=== PATIENT | female | born 1975 | race Caucasian/White ===

== ENCOUNTER 2020-09-22 11:40 | Outpatient (CLI) | payer OTHER, SELFPAY ==
[2020-09-22 11:54] LABS: Basophils Absolute Auto 0.03 K/mm3 (0.00-0.10); Basophils Percent Auto 0.5 % (0.0-1.0); Eosinophils Absolute Auto 0.08 K/mm3 (0.02-0.50); Eosinophils Percent Auto 1.2 % (1.0-6.0); Hematocrit 37.2 % (35.0-49.0); Hemoglobin 12.2 g/dL (12.0-15.0); Immature Granulocyte Absolute 0.02 K/mm3 (0.00-0.00); Immature Granulocyte Percent A 0.3 % (0.0-0.0); Lymphocytes Percent Auto 27.4 % (18.0-42.0); Mean Corpuscular HGB Conc 32.8 g/dL (32.0-36.0); Mean Corpuscular Hemoglobin 27.8 pg (27.0-31.0); Mean Corpuscular Volume 84.7 fL (78.0-102.0); Mean Platelet Volume 10.8 fl (9.2-11.8); Monocytes Absolute Auto 0.68 K/mm3 (0.10-0.90); Monocytes Percent Auto 10.3 % (2.0-11.0); Neutrophils Percent Auto 60.3 % (50.0-70.0); Platelet Count Result 275 K/mm3 (150-420); Red Blood Count 4.39 M/mm3 (4.20-5.40); Red Cell Distribution Width 14.2 % (11.6-14.4); White Blood Count 6.6 K/mm3 (4.8-10.8)
[2020-09-22 12:18] LABS: Hemoglobin A1C 5.9 % (<5.7)
[2020-09-22 12:30] LABS: Alanine Aminotransferase 33 U/L (14-59); Albumin Level 3.9 g/dL (3.4-5.0); Alkaline Phosphatase 142 U/L (46-116); Anion Gap 12 mmol/L (8-16); Aspartate Amino Transferase 14 U/L (15-37); Bilirubin,Total 0.3 mg/dL (0.00-1.00); Blood Urea Nitrogen 10 mg/dL (7-18); Calcium 8.8 mg/dL (8.5-10.1); Carbon Dioxide 31 mmol/L (21-32); Chloride 99 mmol/L (98-108); Cholesterol 137 mg/dL (0-200); Estimated Glomerular Filt Rate > 60; Glucose 109 mg/dL (70-99); HDL Direct 55 mg/dL (40-60); LDL Cholesterol Calculated 53 mg/dL (<130); Osmolality Calculated 294 mOsm/kg (285-295); Sodium 142 mmol/L (136-145); Thyroid Stimulating Hormone 2.54 uIU/mL (0.36-3.74); Total Protein 7.3 g/dL (6.4-8.2); Triglycerides 146 mg/dL (0-150)
[2020-09-22 12:57] LABS: Potassium 2.5 mmol/L (3.5-5.1)
== END 2020-09-22 11:41 | disposition home or self-care (01) ==
LOC: CHSLAB 11:44
PROVIDERS: PCP Nurse Practitioner Family; Visit Provider Nurse Practitioner Family
DX: I10 Essential (primary) hypertension (principal); R63.1 Polydipsia; E03.9 Hypothyroidism, unspecified
CPT/HCPCS: 36415; 80053; 80061; 83036; 84443; 85025

== ENCOUNTER 2020-09-22 14:43 | Emergency (ER) | payer OTHER, SELFPAY ==
[2020-09-22 14:50] VITALS: BP 141/99; PULSE 100; RESP 16; TEMP 37; O2SAT 100
--- NOTE | 2020-09-22 14:54 | ED.RECABL ---
HPI - Recheck/Abnormal Lab/Rx General Chief Complaint: Recheck/Abnormal Lab/Rx Stated Complaint: low potassium Time Seen by Provider: 09/22/20 15:06 Source: patient Mode of arrival: ambulatory Limitations: no limitations History of Present Illness HPI narrative: 44-year-old comes in today at the instruction of her primary care doctor for low potassium. She is our primary care doctor today and had some more less routine labs done in which her potassium was 2.5. Patient denies any symptoms and denies any history of low potassium in the past. She denies weight loss, a desire to lose weight, eating disorders symptoms, and ecjg-mir-hrzyrmo medications. At her visit she was found to be hypertensive and was prescribed hydrochlorothiazide. MD complaint: abnormal lab Initial visit (ago): hour(s) (2-3) Returns today for: called because of abnormal lab/test Symptoms since prior visit: no new symptoms Context: called for abnormal lab result Associated symptoms: none Related Data Home Medications Medication Instructions Recorded Confirmed omeprazole 20 mg capsule,delayed 20 mg PO DAILY 10/21/19 09/22/20 release cetirizine 10 mg PO DAILY 09/22/20 09/22/20 fluoxetine 20 mg PO DAILY 09/22/20 09/22/20 fluticasone propionate 50 mcg INTRANASAL DAILY 09/22/20 09/22/20 levothyroxine 50 mcg PO DAILY 09/22/20 09/22/20 lisinopril 20 mg PO DAILY 09/22/20 09/22/20 Allergies Allergy/AdvReac Type Severity Reaction Status Date / Time No Known Allergies Allergy Mild N/A Verified 09/22/20 10:23 Review of Systems Constitutional: Constitutional: Denies chills, Denies fever(s) and Denies weakness Eyes: Eyes: Denies change in vision and Denies photophobia ENT: Denies nasal congestion and Denies sore throat Cardiovascular: Cardiovascular: Denies chest pain and Denies radiating jaw, neck or arm pain Respiratory: Respiratory: Denies cough Gastrointestinal: Gastrointestinal: Denies abdominal pain, Reports diarrhea, Denies nausea and Denies vomiting Genitourinary: Genitourinary: Denies hematuria, Denies nocturia and Denies dysuria Musculoskeletal: Musculoskeletal: Denies back pain, Denies arthralgias and Denies joint swelling Integumentary/Breasts: Skin/Breast: Denies pruritus, Denies erythema and Denies rash Neurologic: Denies vertigo, Denies dizziness and Denies syncope Hematologic/Lymphatic: Hematologic/Lymphatic: Denies easy bleeding and Denies easy bruising Allergic/Immunologic: Allergic/Immunologic: Denies lip swelling and Denies tongue swelling PMFSH Past Medical History Medical History Acute bronchitis Acute sinusitis Chronic sinus complaints Chronic sinus complaints Depression Exposure to COVID-19 virus HTN (hypertension) Hypothyroidism Polydipsia Tobacco dependence Surgical History Surgical History Hx of appendectomy Hx of cholecystectomy Hx of colonoscopy 05/14/2019 Hx of hysterectomy 2009 Family History Family History Mother Diabetes mellitus Father Carcinoma of colon Social History Social History Smoking packs per day: 0.5 Smoking cigarettes per day: 10.0 Years smoked: 25 Smoking pack-years: 12.50 Smoking status: Current every day smoker Tobacco type: cigarettes Alcohol intake: current Substance use: never Substance use type: does not use Additional occupation/education comments: [employer] Gender identity (if verbalized by the patient): Female Exam Const: General: healthy appearing, no acute distress and alert Orientation/consciousness: patient oriented x3 Limitations: no limitations HENMT: Head: normal to inspection Ears: external ears normal, TM's normal bilaterally and EAC's normal General nose exam: Normal nares present Face
[2020-09-22] MEDS: KCL 20 MEQ/SW 100 ML 100 ML 50 MEQ IVPB ×2 (15:25→17:27)
--- NOTE | 2020-09-22 15:46 | PC.NURSE ---
PT IS TAKEN TO ROOM 203 FOR INFUSION OF POTASSIUM - PT IS AWARE SHE IS GOING TO BE HERE INTO THE NIGHT - PT STABLE AT TIME OF TRANSPORT - [facility] INFUSING TO THE FLOOR - REPORT TO SHAHEEN
[2020-09-22 16:05] LABS: Potassium Urine Random 80.5 mmol/L (12-62); Sodium Urine Random 72 mmol/L (20-110)
--- NOTE | 2020-09-22 16:07 | PC.NURSE ---
pt arrived to floor with belongings, iv running, pt has no complaints at this time, given drink, call light on lap
--- NOTE | 2020-09-22 16:28 | PC.NURSE ---
placed on telemetry, HR 81, SV Rhythm per monitor
[2020-09-22] MEDS: IBUPROFEN 600 MG TABLET PO (17:07)
[2020-09-22] MEDS: SODIUM CHLORIDE 0.9% IV 1,000 ML 100 ML IV CONT (17:07)
--- NOTE | 2020-09-22 18:11 | PC.NURSE ---
pt ate 100% of dinner, reports arm soreness is better now, iv running
--- NOTE | 2020-09-22 19:32 | PC.NURSE ---
Potassium finished, is ordering repeat bnp
[2020-09-22 19:56] LABS: Anion Gap 7 mmol/L (8-16); Blood Urea Nitrogen 12 mg/dL (7-18); Calcium 8.3 mg/dL (8.5-10.1); Carbon Dioxide 32 mmol/L (21-32); Chloride 103 mmol/L (98-108); Estimated Glomerular Filt Rate > 60; Glucose 110 mg/dL (70-99); Osmolality Calculated 294 mOsm/kg (285-295); Potassium 2.9 mmol/L (3.5-5.1); Sodium 142 mmol/L (136-145)
--- NOTE | 2020-09-22 20:30 | PC.NURSE ---
IV removed, cath intact, dressing applied, pt tolerated well
[2020-09-22 20:34] VITALS: BP 141/99; PULSE 81; RESP 20; TEMP 36.3; O2SAT 100
== END 2020-09-22 20:33 | disposition home or self-care (01) ==
PROVIDERS: Emergency Provider Emergency Medicine; PCP Nurse Practitioner Family
DX: E87.6 Hypokalemia (principal); I10 Essential (primary) hypertension
CPT/HCPCS: 36415; 80048; 82570; 84133; 84300; 96365; 96366; 99283; 99284; A9270; J3480; J7030

== ENCOUNTER → 2020-12-05 02:04 | Outpatient (CLI) | payer OTHER, SELFPAY ==
[2020-12-05 19:43] LABS: SARS-CoV-2 RNA PCR Negative
== END ==
PROVIDERS: PCP Nurse Practitioner Family; Visit Provider Internal Medicine Gastroenterology
DX: Z01.812 Encounter for preprocedural laboratory examination (principal); Z20.822 Contact with and (suspected) exposure to COVID-19
CPT/HCPCS: C9803; U0003; U0005

== ENCOUNTER → 2020-12-26 01:20 | Outpatient (CLI) | payer OTHER, SELFPAY ==
[2020-12-26 19:38] LABS: SARS-CoV-2 RNA PCR Negative
== END ==
PROVIDERS: PCP Nurse Practitioner Family; Visit Provider Internal Medicine Gastroenterology
DX: Z01.812 Encounter for preprocedural laboratory examination (principal); Z20.822 Contact with and (suspected) exposure to COVID-19
CPT/HCPCS: C9803; U0003; U0005

== ENCOUNTER 2021-03-17 11:59 | Outpatient (CLI) | payer OTHER, SELFPAY ==
--- NOTE | 2021-03-17 12:03 | ECG_ITS ---
Measurements Intervals [place] Rate: 67 P: 62 IN: 121 QRS: 68 QRSD: 86 T: 59 QT: 447 QTc: 472 Interpretive Statements SINUS RHYTHM MINIMAL Q WAVES- INFERIOR LEADS BORDERLINE ECG Electronically Signed On 03-17-2021 13:02:42 CDT by Sebastián Alvarado D.O.
[2021-03-17 12:11] LABS: Basophils Absolute Auto 0.05 K/mm3 (0.00-0.10); Basophils Percent Auto 0.6 % (0.0-1.0); Eosinophils Absolute Auto 0.18 K/mm3 (0.02-0.50); Hemoglobin 12.6 g/dL (12.0-15.0); Immature Granulocyte Absolute 0.03 K/mm3 (0.00-0.00); Immature Granulocyte Percent A 0.3 % (0.0-0.0); Lymphocytes Absolute Auto 2.21 K/mm3 (1.10-4.50); Lymphocytes Percent Auto 24.4 % (18.0-42.0); Mean Corpuscular HGB Conc 32.3 g/dL (32.0-36.0); Mean Corpuscular Hemoglobin 27.8 pg (27.0-31.0); Mean Corpuscular Volume 85.9 fL (78.0-102.0); Mean Platelet Volume 10.9 fl (9.2-11.8); Monocytes Absolute Auto 0.76 K/mm3 (0.10-0.90); Monocytes Percent Auto 8.4 % (2.0-11.0); Neutrophils Absolute Auto 5.8 K/mm3 (1.7-7.2); Neutrophils Percent Auto 64.3 % (50.0-70.0); Platelet Count Result 274 K/mm3 (150-420); Red Blood Count 4.54 M/mm3 (4.20-5.40); Red Cell Distribution Width 14.9 % (11.6-14.4); White Blood Count 9.1 K/mm3 (4.8-10.8)
[2021-03-17 13:43] LABS: Alanine Aminotransferase 31 U/L (14-59); Albumin Level 3.8 g/dL (3.4-5.0); Alkaline Phosphatase 115 U/L (46-116); Anion Gap 12 mmol/L (8-16); Aspartate Amino Transferase 18 U/L (15-37); Bilirubin,Total 0.3 mg/dL (0.00-1.00); Blood Urea Nitrogen 8 mg/dL (7-18); Calcium 8.6 mg/dL (8.5-10.1); Carbon Dioxide 29 mmol/L (21-32); Chloride 104 mmol/L (98-108); Cholesterol 122 mg/dL (0-200); Estimated Glomerular Filt Rate > 60; Free T4 Free Thyroxine 1.16 ng/dL (0.76-1.46); Glucose 92 mg/dL (70-99); HDL Direct 40 mg/dL (40-60); LDL Cholesterol Calculated 56 mg/dL (<130); Osmolality Calculated 298 mOsm/kg (285-295); Potassium 3.2 mmol/L (3.5-5.1); Sodium 145 mmol/L (136-145); Thyroid Stimulating Hormone 0.76 uIU/mL (0.36-3.74); Total Protein 7.5 g/dL (6.4-8.2); Triglycerides 129 mg/dL (0-150)
== END 2021-03-17 12:00 | disposition home or self-care (01) ==
LOC: CHSLAB 12:03
PROVIDERS: PCP Nurse Practitioner Family; Visit Provider Nurse Practitioner Family
DX: R07.9 Chest pain, unspecified (principal); I10 Essential (primary) hypertension; E03.9 Hypothyroidism, unspecified; Z00.00 Encounter for general adult medical examination without abnormal findings
CPT/HCPCS: 36415; 80053; 80061; 84439; 84443; 85025; 93005

== ENCOUNTER 2021-04-05 15:03 | Outpatient (CLI) | payer OTHER, SELFPAY ==
--- NOTE | ~2021-04-05 | XR_ITS ---
XR lumbar spine 2-3V DATE: 04/05/2021 15:23 INDICATION: Chronic intermittent low back pain radiating to left leg TECHNIQUE: AP, lateral, coned lateral lumbosacral views COMPARISON: 06/12/2014 lumbar spine FINDINGS: Surgical clips, right upper quadrant, consistent with cholecystectomy. There is degenerative spurring of the lower thoracic spine. There is minimal degenerative spurring o f the lumbar spine. No fracture or bone destruction is evident. The included lower thoracic and lumbar pedicles are intac t. The sacroiliac joints are intact. IMPRESSION: Mild degenerative change of the lower thoracic and to a lesser extent lumbar spine Reviewed, dictated and finalized at location A. IMPRESSION: Mild degenerative change of the lower thoracic and to a lesser exte nt lumbar spine
== END 2021-04-05 15:04 | disposition home or self-care (01) ==
LOC: CHSIMG 15:05
PROVIDERS: PCP Nurse Practitioner Family; Visit Provider Nurse Practitioner Family
DX: M54.9 Dorsalgia, unspecified (principal)
CPT/HCPCS: 72100

== ENCOUNTER 2021-04-12 14:11 | Outpatient (RCR) | payer OTHER, SELFPAY ==
--- NOTE | 2021-04-12 15:37 | PTOPEVAL ---
Thank you for referring Amirah Rios to [facility] [place].? The patient is scheduled to be seen for therapy? ____x/week for ___ weeks. Please review, sign, date and return this plan of care RAMOS. I agree with and certify that the following plan of care is medically necessary. Referring Physician Date Admitting Provider: Attending Provider: Maritza Verde NP Referring Provider: GITA Outpatient Evaluation Start: 04/12/21 14:13 Freq: Status: Active Protocol: Document 04/12/21 14:13 ACR (Rec: 04/12/21 15:31 ACR [email or web address]) Therapy Assessment Status Assessment Status Assessment Status Evaluation Outpatient Past Medical History Neurological History Hx Neurological Disorders No Significant History Cardiovascular History Hx Hypertension Yes Respiratory History Hx Bronchitis Yes Gastrointestinal History Hx Gastroesophageal Reflux Disease Yes Hx Gastrointestinal Bleed Yes: OOC IN STOOL Hx Irritable Bowel Yes: DIARRHEA/CONSTIPATION Hx Other Gastrointestinal Disorders Yes: HAVING SEVERE DIARRHEA- LABS CHECKED K+ LOW RECIEVED IV K/FLUIDS ER Genitourinary History Hx Kidney Stones Yes Hx Other Genitourinary Disorders Yes: INTERSTIAL CYSTITIS Musculoskeletal History Hx Musculoskeletal Disorders No Significant History Hematological History Hx Hematological Disorders No Significant History Endocrine History Hx Hypothyroidism Yes HEENT History Hx Sinus Problems Yes: CHRONIC SINUSITIS- SEES ENT Integumentary History Hx Skin Disorders No Significant History Reproductive History Hx Endometriosis Yes: AND CYST ON OVARIES Psychosocial History Hx Anxiety Yes Hx Depression Yes Pain History History of Any Previous or Ongoing No Significant History Instance of Pain Anesthesia History Hx Anesthesia Reactions No Significant History Evaluation Information Problem Diagnosis LBP Onset 04/07/21 Subjective Information Patient states that she Query Text:As Reported By Patient/ started having pain in her Family lower back and the pain isn't going away. She states she went to the doctor and got an X-ray which showed some DDD. She states the pain is so bad throughout her lower back, hips, and tailbone. Patint states she sometimes has radicular symptoms down the LLE. She states
--- NOTE | 2021-05-14 07:48 | PCPTNOTE ---
Patient is a 45 year old female that participated in the initial evaluation for dorsalgia. The patient no showed her next two appointments and was called a handful of times to check in. The patient will be discharged from skilled therapy at this time. Please refer to initial evaluation for discharge status. Thank you, JAQUELINE HamptonT
== END 2021-04-12 15:11 | disposition home or self-care (01) ==
LOC: CHSPT 14:11
PROVIDERS: PCP Nurse Practitioner Family; Visit Provider Nurse Practitioner Family
DX: M54.9 Dorsalgia, unspecified (principal)
CPT/HCPCS: 97014; 97110; 97161; G0283

== ENCOUNTER 2021-06-18 11:43 | Outpatient (CLI) | payer OTHER, SELFPAY ==
--- NOTE | ~2021-06-18 | XR_ITS ---
XR chest 2V 06/18/2021 12:00 Indication: Cough, sore throat Procedure: 2 view chest Comparison: Comparison to multiple prior studies sequentially, with oldest reviewed study dated 09/07. Findings: There is focal airspace disease of the right lower lung, compatible with pneumonia. Heart s ize normal. No pleural effusion, edema or pneumothorax. No acute osseous abnormality. Impression: 1: Focal airspace disease right lower lung, compatible with pneumonia. Reviewed, dictated and finalized at location A. LE ENDING MACHINE OPERATOR Impression: 1: Focal airspace disease right lower lung, compatible with pneumonia.
== END 2021-06-18 11:44 | disposition home or self-care (01) ==
LOC: CHSIMG 11:47
PROVIDERS: PCP Nurse Practitioner Family; Visit Provider Nurse Practitioner Family
DX: R09.89 Other specified symptoms and signs involving the circulatory and respiratory systems (principal)
CPT/HCPCS: 71046